=== PATIENT | female | born 2000 | race African-American/Black ===

== ENCOUNTER 2020-02-22 21:04 | Emergency (ER) | payer OTHER ==
[~2020-02-22] VITALS: Ht 152.4 cm; Wt 72.0 kg
--- NOTE | 2020-02-22 21:32 | PHYS DOC ---
General Adult EDM: Chief Complaint: FOREIGN BODY HPI: HPI: Patient is a 19 year old female who presents with states she ate [employer] tonight started having esophageal type pain like as if food was stuck. States is a dull hard type of pain. Patient has a history of achalasia esophageal constriction, esophageal stretching done by Dr. Saint Brothers at [facility], Heller myotomy done at [facility] by Dr Roseanne Lanier. She states that she has been having the pain in her mid chest esophagus for the last couple weeks but she thought it would just get better. She states this is the same pain that she always gets when food gets stuck or if she is needing a stretching of her esophagus. She states she is able to swallow fluid and states that the fluid seems to be pushing the food down. She rates her discomfort at a 5 out of 10. Review of Systems: Review of Systems: Constitutional: Denies fever or chills. [] Eyes: Denies change in visual acuity. [] HENT: Denies nasal congestion or sore throat. + Esophageal food bolus [] Respiratory: Denies cough or shortness of breath. [] Cardiovascular: Denies chest pain or edema. + Mid chest esophageal pain [] GI: Denies abdominal pain, nausea, vomiting, bloody stools or diarrhea. [] : Denies dysuria. [] Musculoskeletal: Denies back pain or joint pain. [] Integument: Denies rash. [] Neurologic: Denies headache, focal weakness or sensory changes. [] Endocrine: Denies polyuria or polydipsia. [] Lymphatic: Denies swollen glands. [] Psychiatric: Denies depression or anxiety. [] Heart Score: Risk Factors: Risk Factors: DM, Current or recent (<one month) smoker, HTN, HLP, family history of CAD, obesity. Risk Scores: Score 0 - 3: 2.5% MACE over next 6 weeks - Discharge Home Score 4 - 6: 20.3% MACE over next 6 weeks - Admit for Clinical Observation Score 7 - 10: 72.7% MACE over next 6 weeks - Early Invasive Strategies Physical Exam: PE: Constitutional: Well developed, well nourished, no acute distress, non-toxic appearance. [] HENT: Normocephalic, atraumatic, bilateral external ears normal, oropharynx moist, no oral exudates, nose normal. [] Eyes: PERRLA, EOMI, conjunctiva normal, no discharge. [] Neck: Normal range of motion, no tenderness, supple, no stridor. [] Cardiovascular:Heart rate regular rhythm, no murmur [] Lungs & Thorax: Bilateral breath sounds clear to auscultation [] Abdomen: Bowel sounds normal, soft, no tenderness, no masses, no pulsatile masses. [] Skin: Warm, dry, no erythema, no rash. [] Back: No tenderness, no CVA tenderness. [] Extremities: No tenderness, no cyanosis, no clubbing, ROM intact, no edema. [] Neurologic: Alert and oriented X 3, normal motor function, normal sensory function, no focal deficits noted. [] Psychologic: Affect normal, judgement normal, mood normal. Normal physical exam [] EKG: EKG: [] Radiology/Procedures: Radiology/Procedures: [] Impression: [facility] [address] [place], [place] [id number] IMAGING REPORT Signed PATIENT: FAZAL LOMELI BACCOUNT: [id number] : 2000 LOCATION: ER AGE: 19 SEX: F EXAM STATUS: REG ER ORD. PHYSICIAN: ROMARIO HERNÁNDEZ APRN REASON: Asthma, chest pain, possible food bolus PROCEDURE: PORTABLE CHEST 1V XR CHEST 1V INDICATION: Reason: Asthma, chest pain, possible food bolus / Spl. Instructions: / History: . COMPARISON STUDY: None. FINDINGS: Lungs: Normal lung volume. No pulmonary mass or consolidation. The tracheobronchial tree and hilar structures are normal. Pleura: No pleural effusion or pneumothorax. Heart and Mediastinum: The cardiomediastinal silhouette is normal. The great vessels of the thorax are normal. Bones and Soft Tissues: The bones and soft tissues are within normal limits. IMPRESSION: No acute cardiopulmonary process. Electronically signed by: Teresa Wood MD (02/22/2020 10:23 PM) [facility] DICTATED and SIGNED BY: TERESA WOOD MD DATE: 02/22/20 [id number] 0 Course & Med Decision Making: Course & Med Decision Making Pertinent Labs and Imaging studies reviewed. (See chart for details) See HPI. Alert and oriented x4. Speaks in full clear sentences. Ambulatory with steady gait. Skin pink warm and dry. Vital signs within normal limits. Abdomen soft and nontender. Patient denies abdominal pain, nausea, vomiting, diarrhea, fever, shortness of breath, headache, dizziness. Patient is given glucagon in the ED. Glucagon did not help. Patient is given a GI cocktail. Chest x-ray shows no acute findings. Patient follow-up with GI or her primary care provider as soon as possible. Patient is noninfected as she is keeping food and fluids down. She is not vomiting. I have gone over this patient and care plan with Dr Campbell. [] Jodi Disclaimer: Jodi Disclaimer: This electronic medical record was generated, in whole or in part, using a voice recognition dictation system. Departure Departure Impression: Primary Impression: Esophagitis Disposition: 01 DC HOME SELF CARE/HOMELESS Condition: STABLE Referrals: NO PCP (PCP) EBONY CHARLTON MD Patient Instructions: Esophageal Spasm, Esophageal Stricture Additional Instructions: Call your primary care physician or the doctor that you have seen in the past tomorrow. If you begin to not be able to keep food down or fluids return to the emergency room. The best place would go would be [facility] since you had a surgery there for this issue. Scripts Mag Hydrox/Al Hydrox/Simeth (MAALOX MAXIMUM STRENGTH SUSP) 355 Ml Oral.susp 10 ML PO Q6HRS for 5 Days, #1 MISC Prov: ROMARIO HERNÁNDEZ APRN 02/22/20 ROMARIO HERNÁNDEZ APRN Feb 22, 2020 21:32
[2020-02-22] MEDS ORDERED: ONDANSETRON PF 4 MG/2 ML VIAL. IVP ONE (22:00)
[2020-02-22] MEDS ORDERED: GLUCAGON,HUMAN RECOMBINANT 1 MG/ML VIAL. IV ONE (22:00)
--- NOTE | 2020-02-22 22:25 | RAD ---
XR CHEST 1V INDICATION: Reason: Asthma, chest pain, possible food bolus / Spl. Instructions: / History: . COMPARISON STUDY: None. FINDINGS: Lungs: Normal lung volume. No pulmonary mass or consolidation. The tracheobronchial tree and hilar st ructures are normal. Pleura: No pleural effusion or pneumothorax. Heart and Mediastinum: The cardiomediastinal silhouette is normal. The great vessels of the thorax ar e normal. Bones and Soft Tissues: The bones and soft tissues are within normal limits. IMPRESSION: No acute cardiopulmonary process. Electronically signed by: Rajat Wood MD (02/22/2020 10:23 PM) [facility]
[2020-02-22 22:36] VITALS: BP 110/70
[2020-02-22] MEDS ORDERED: MAG355OR12 PO (22:45)
[2020-02-22] MEDS ORDERED: LIDO:MAALOX 1:1 20 ML SINGLE DOSE. SWSW ONE (23:00)
== END 2020-02-22 22:55 | disposition home or self-care (01) ==
LOC: ER 21:04
DX: K20.90 Esophagitis, unspecified without bleeding (principal)
CPT/HCPCS: 71045; 81025; 96374; 96375; 99285; J1610; J2405